=== PATIENT | male | born 1995 | race Caucasian/White ===

== ENCOUNTER 2021-05-04 15:30 | Emergency (ER) | payer OTHER ==
[~2021-05-04] VITALS: Ht 175.3 cm; Wt 77.3 kg
[2021-05-04 15:30] VITALS: BP 134/74
--- NOTE | 2021-05-04 19:10 | PHYS DOC ---
Past History Past Surgical History: No Surgical History (LUIS RAY UNHAIRING INSPECTOR) Alcohol Use: None (LUIS RAY UNHAIRING INSPECTOR) Adult General Chief Complaint Chief Complaint: CONGESTION HPI HPI Patient is a 25-year-old male patient presented to the ED today requesting a rapid Covid test. Patient states he has cough, congestion, sore throat, headache, symptoms began yesterday. He states he Elizabeth once this today. (LUIS RAY UNHAIRING INSPECTOR) Review of Systems Review of Systems Constitutional: Denies fever or chills [] Eyes: Denies change in visual acuity, redness, or eye pain [] HENT: Reports sore throat,and nasal congestion Respiratory: reports cough denies shortness of breath [] Cardiovascular: No additional information not addressed in HPI [] GI: Denies abdominal pain, nausea, vomiting, bloody stools or diarrhea [] : Denies dysuria or hematuria [] Musculoskeletal: Denies back pain or joint pain [] Integument: Denies rash or skin lesions [] Neurologic: Reports headache, denies focal weakness or sensory changes [] All other systems were reviewed and found to be within normal limits, except as documented in this note. (LUIS RAY UNHAIRING INSPECTOR) Allergies Allergies Allergies Coded Allergies Type Severity Reaction Last Updated Verified Penicillins Allergy Unknown 05/04/21 Yes amoxicillin Allergy Unknown 05/04/21 Yes (LUIS RAY UNHAIRING INSPECTOR) Physical Exam Physical Exam Constitutional: Well developed, well nourished, no acute distress, non-toxic appearance. [] HENT: Normocephalic, atraumatic, bilateral external ears normal, oropharynx moist, no oral exudates, nose normal. [] Eyes: PERRLA, EOMI, conjunctiva normal, no discharge. [] Neck: Normal range of motion, no tenderness, supple, no stridor. [] Cardiovascular:Heart rate regular rhythm, no murmur [] Lungs & Thorax: Bilateral breath sounds clear to auscultation [] Abdomen: Bowel sounds normal, soft, no tenderness, no masses, no pulsatile masses. [] Skin: Warm, dry, no erythema, no rash. [] Back: No tenderness, no CVA tenderness. [] Extremities: No tenderness, no cyanosis, no clubbing, ROM intact, no edema. [] Neurologic: Alert and oriented X 3, normal motor function, normal sensory function, no focal deficits noted. [] Psychologic: Affect normal, judgement normal, mood normal. [] (LUIS RAY APRN) Current Patient Data Vital Signs Vital Signs Date Time Temp Pulse Resp B/P (MAP) Pulse Ox O2 Delivery O2 Flow Rate FiO2 05/04/21 15:30 97.7 88 16 134/74 (94) 100 Room Air Lab Results Laboratory Tests Test 05/04/21 17:47 SARS-CoV-2 Antigen (Rapid) Negative (NEGATIVE) (LUIS RAY APRN) EKG EKG [] (LUIS RAY APRN) Radiology/Procedures Radiology/Procedures [] (LUIS RAY APRN) Heart Score C/O Chest Pain: N/A Risk Factors: Risk Factors: DM, Current or recent (<one month) smoker, HTN, HLP, family history of CAD, obesity. Risk Scores: Risk Factors: DM, Current or recent (<one month) smoker, HTN, HLP, family history of CAD, obesity. (LUIS RAY APRN) Course & Med Decision Making Course & Med Decision Making Pertinent Labs and Imaging studies reviewed. (See chart for details) This 35-year-old male patient presenting to the ED today complaining of sore throat, cough, nasal congestion, headache, symptoms since yesterday and requesting a rapid Covid test. Rapid Covid test is negative, PCR Covid test is pending. Discharge to home. Supportive care measures recommended (LUIS RAY APRN) Course & Med Decision Making Did not see or evaluate patient. Did not discuss patient with FINISH CLEANER. Agree with FINISH CLEANER's work-up and disposition per note. (ERIN RAMOS MD) Dragon Disclaimer Dragon Disclaimer This electronic medical record was generated, in whole or in part, using a voice recognition dictation system. (LUIS RAY APRN) Departure Departure: Impression: Primary Impression: Person under investigation for COVID-19 Additional Impressions: Cough URI (upper respiratory infection) Disposition: HOME / SELF CARE / HOMELESS Condition: STABLE Referrals: PCP,NO (PCP) follow up with your doctor in one week Patient Instructions: Cough, Adult, [id number], Upper Respiratory Infection, Adult, [id number] Additional Instructions: Your rapid Covid test is negative. Your PCR Covid test is pending. Please quarantine yourself until you get results. Take [id number] remedies for cold and flu medicines as needed for your symptoms. Problem Qualifiers Additional Impressions: URI (upper respiratory infection) URI type: unspecified URI Qualified Codes: J06.9 - Acute upper respiratory infection, unspecified LUIS RAY APRN May 04, 2021 19:10 ERIN RAMOS MD May 04, 2021 19:32
== END 2021-05-04 19:12 | disposition home or self-care (01) ==
LOC: ER 15:30
DX: J06.9 Acute upper respiratory infection, unspecified (principal); Z20.822 Contact with and (suspected) exposure to COVID-19; Z88.0 Allergy status to penicillin; Z88.1 Allergy status to other antibiotic agents
CPT/HCPCS: 87426; 99283; C9803; U0003